=== PATIENT | male | born 1960 | race Caucasian/White ===

== ENCOUNTER 2019-05-23 16:55 | Emergency (ER) | payer BC ==
[~2019-05-23] VITALS: Ht 177.8 cm; Wt 86.2 kg
[2019-05-23 18:43] LABS: HEMATOCRIT 43.7 % (42.0-52.0); HEMOGLOBIN 15.1 gm/dL (14.0-18.0); MCH 33.2 pg (26.0-34.0); MCHC 34.6 g/dL (28.0-37.0); MCV 96.1 fL (80.0-100.0); PLATELET COUNT 178 thou/uL (150-400); RBC 4.54 mil/uL (4.50-6.00); RDW 12.6 % (10.5-14.5); WBC 8.3 thou/uL (4.0-11.0)
[2019-05-23 18:46] LABS: CALCIUM 9.5 mg/dL (8.5-10.1); POTASSIUM 4.4 mmol/L (3.5-5.1)
[2019-05-23 19:18] LABS: ABSOLUTE NEUTROPHILS 6.5 thou/uL (1.4-8.2); PLATELET ESTIMATE NORMAL
[2019-05-23] MEDS ORDERED: DOXYCYCLINE 10100 MG PO (20:02)
[2019-05-23] MEDS ORDERED: VENTOLIN HFA 1818 GM INH (20:02)
[2019-05-23] MEDS ORDERED: TESSALON PERLE100 MG PO (20:02)
[2019-05-23 20:25] VITALS: BP 136/91
--- NOTE | 2019-05-24 11:52 | EKG ---
[facility] [place] [address] ELECTROCARDIOGRAM REPORT Name: LESLIE REDMOND Room #: [facility] Sid#: [id number] Admission: 05/23/19 Attend Phys: Discharge: 05/23/19 Date of : 64 Report #: [id number] THIS REPORT FOR: //name// [facility] ED Test Date: 2019-05-23 Test Time: 17:53:22 Pat Name: LESLIE REDMOND Department: Room: Gender: M Pipelaying Fitter: : 1960 Requested By: Royce Grace Order Number: [id number] MD: Petey Hobson Measurements Intervals [place] Rate: 70 P: 50 IN: 177 QRS: -64 QRSD: 100 T: 30 QT: 401 QTc: 433 Interpretive Statements Sinus rhythm Left anterior fascicular block Abnormal R-wave progression, late transition No previous ECG available for comparison Electronically Signed On 05-24-2019 11:52:17 TENTERER by Petey Hobson [email or web address] <ELECTRONICALLY SIGNED> By: Petey Hobson MD, [facility] 05/24/19 1152 1753 1753 Petey Hobson MD, FACC /EPI
== END 2019-05-23 20:25 | disposition home or self-care (01) ==
LOC: ER 16:55
PROVIDERS: Physician Assistant
DX: J18.9 Pneumonia, unspecified organism (principal); J45.909 Unspecified asthma, uncomplicated